=== PATIENT | female | born 1970 | race Caucasian/White ===

== ENCOUNTER 2019-08-31 16:26 | Emergency (ER) | payer MEDICAID ==
[~2019-08-31] VITALS: Ht 152.4 cm; Wt 80.0 kg
[2019-08-31] MEDS ORDERED: IBUPROFEN 800MG TABLET PO NR (19:30)
[2019-08-31] MEDS ORDERED: ACETAMINOPHEN 500MG TABLET PO NR (19:30)
[2019-08-31 20:42] VITALS: BP 144/91
== END 2019-08-31 20:43 | disposition home or self-care (01) ==
LOC: ER 16:26
DX: S83.91XA Sprain of unspecified site of right knee, initial encounter (principal); S93.401A Sprain of unspecified ligament of right ankle, initial encounter; V19.9XXA Pedal cyclist (driver) (passenger) injured in unspecified traffic accident, initial encounter; Y93.89 Activity, other specified; Y92.410 Unspecified street and highway as the place of occurrence of the external cause
CPT/HCPCS: 73560; 73600; 99283

== ENCOUNTER 2023-03-12 18:41 | Emergency (ER) | payer MEDICAID, OTHER ==
[~2023-03-12] VITALS: Ht 162.6 cm; Wt 75.0 kg
[2023-03-12 18:54] VITALS: BP 158/85
[2023-03-12] MEDS ORDERED: KETOROLAC 60MG/2ML VIAL IM ONE (21:30)
[2023-03-12] MEDS ORDERED: IBUP-2029 MT (22:13)
[2023-03-12] MEDS ORDERED: T3 PO (22:13)
== END 2023-03-12 22:36 | disposition home or self-care (01) ==
LOC: ER 18:41
DX: S92.351A Displaced fracture of fifth metatarsal bone, right foot, initial encounter for closed fracture (principal); W19.XXXA Unspecified fall, initial encounter; Y93.89 Activity, other specified; Y92.89 Other specified places as the place of occurrence of the external cause; Y99.8 Other external cause status
CPT/HCPCS: 29515; 73610; 96372; 99283; J1885